=== PATIENT | male | born 1990 | race Caucasian/White ===

== ENCOUNTER 2022-08-21 02:53 | Emergency (ER) | payer SELFPAY ==
[~2022-08-21] VITALS: Ht 177.8 cm; Wt 112.0 kg
[2022-08-21 02:56] VITALS: BP 122/80
== END 2022-08-21 03:39 | disposition left against medical advice (07) ==
LOC: ER 03:03
DX: Z53.21 Procedure and treatment not carried out due to patient leaving prior to being seen by health care provider (principal)
CPT/HCPCS: 99281